=== PATIENT | female | born 1985 | race American Indian/Alaskan Native ===

== ENCOUNTER 2022-08-02 14:11 | Inpatient (IN) | payer MEDICARE, MEDICAID ==
[2022-08-02 14:45] VITALS: BP 143/95
[2022-08-02 15:51] LABS: Hematocrit 29.2 % (30.3-42.9); Hemoglobin 9.8 gm/dl (10.1-14.3); Mean Corpuscular HGB Conc 34 % (30-34); Platelet Count 119 K/mm3 (140-440); Red Blood Count 2.64 M/mm3 (3.65-5.03)
[2022-08-02 15:55] LABS: Albumin 4.2 g/dL (3.9-5); Calcium 7.6 mg/dL (8.4-10.2)
[2022-08-02 16:00] LABS: Mean Corpuscular Volume 111 fl (79-97); Red Cell Distribution Width 21.6 % (13.2-15.2)
--- NOTE | 2022-08-02 16:46 | XRay Report ---
CHEST 2 VIEWS INDICATION / CLINICAL INFORMATION: Missed hemodialysis. COMPARISON: None available. FINDINGS: SUPPORT DEVICES: None. HEART / MEDIASTINUM: The heart size and pulmonary vasculature are normal. LUNGS / PLEURA: No significant pulmonary or pleural abnormality. No pneumothorax. ADDITIONAL FINDINGS: No significant additional findings. IMPRESSION: No acute findings. Signer Name: Miky Gong MD Signed: 08/02/2022 4:42 PM Workstation Name: [id number]
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
--- NOTE | 2022-08-02 17:48 | History and Physical Report ---
History of Present Illness Chief complaint: I need dialysis History of present illness: 37 YO Female with ESRD on HD(T,R,Sa) last dialyzed on Sunday, HTN, HLD presents to ED for evaluation. Patient reports "I need dialysis". Patient states that she missed her routine dialysis session on Sunday. Patient transported to [facility] via private vehicle for further care and evaluation of the aforementioned symptoms. Patient seen and evaluated emergency department all lab and imaging studies reviewed. Patient found to have end-stage renal disease in need of urgent dialysis with concomitant fluid overload. Nephrology team consulted in ED. Patient denies fever, chills, chest pain, palpitation, productive cough, skin rash, recent contact, known exposure to COVID-19. No prior admission for review. All medication listed at time of admission has been reconciled. Advanced care planning conducted in ED. Past History Past Medical History: ESRD, hypertension Past Surgical History: Other (Dialysis access) Social history: single. denies: smoking, alcohol abuse, prescription drug abuse Family history: diabetes, hypertension Medications and Allergies Allergies Allergy/AdvReac Type Severity Reaction Status Date / Time ampicillin Allergy Unknown Verified 08/02/22 14:50 doxercalciferol Allergy Unknown Verified 08/02/22 14:50 [From Hectorol] fentanyl Allergy Unknown Verified 08/02/22 14:50 latex Allergy Unknown Verified 08/02/22 14:50 promethazine [From Phenergan] Allergy Unknown Verified 08/02/22 14:50 vancomycin Allergy Unknown Verified 08/02/22 14:50 Review of Systems Constitutional: no weight loss, no weight gain, no fever, no chills Ears, nose, mouth and throat: no ear pain, no tinnitis, no decreased hearing Breasts: no change in shape, no swelling, no mass Cardiovascular: no chest pain, no orthopnea, no rapid/irregular heart beat, no edema, no syncope Respiratory: no cough, no excessive sputum, no hemoptysis, no shortness of breath Gastrointestinal: no abdominal pain, no nausea, no diarrhea, no hematemesis Genitourinary Female: no pelvic pain, no flank pain, no dysuria, no urinary frequency, no urgency, no stress incontinence Rectal: no pain, no incontinence, no bleeding Musculoskeletal: no neck stiffness, no shooting arm pain, no low back pain, no shooting leg pain, no leg numbness/tingling Integumentary: no rash, no redness, no sores, no jaundice, no boils, no blisters Neurological: no head injury, no paralysis, no parathesias, no seizures, no tremors, no ataxia Psychiatric: no anxiety, no sleep disturbances, no hypersomnia, no change in libido, no suicidal ideation, no hallucinations Endocrine: no heat intolerance, no polydipsia, no weight change Hematologic/Lymphatic: no easy bruising, no easy bleeding, no lymphedema Allergic/Immunologic: no urticaria, no allergic rhinitis, no wheezing, no anaphylaxis Exam - Constitutional Vitals: Temp Pulse Resp BP Pulse Ox 99 F 89 18 143/95 98 08/02/22 14:40 08/02/22 14:40 08/02/22 17:01 08/02/22 14:40 08/02/22 17:01 General appearance: Present: mild distress - EENT Eyes: Present: PERRL ENT: hearing intact, clear oral mucosa - Neck Neck: Present: supple, normal ROM - Respiratory Respiratory effort: normal Respiratory: bilateral: CTA - Cardiovascular Heart Sounds: Present: S1 & S2. Absent: rub, click - Extremities Extremities: pulses symmetrical, No edema Peripheral Pulses: within normal limits - Abdominal General gastrointestinal: Present: soft, non-tender, non-distended, normal bowel sounds Female genitourinary: Present: normal - Integumentary Integumentary: Present: clear, warm, dry - Musculoskeletal Musculoskeletal: gait normal, strength equal bilaterally - Psychiatric Psychiatric: appropriate mood/affect, intact judgment & insight - Neurologic Neurologic: CNII-XII intact, moves all extremities Results - Labs CBC & Chem 7: 08/02/22 15:07 08/02/22 15:07 Labs: Abnormal lab results 08/02/22 08/02/22 08/02/22 Range/Units 15:07 15:07 15:07 WBC 4.3 L (4.5-11.0) K/mm3 RBC 2.64 L (3.65-5.03) M/mm3 Hgb 9.8 L (10.1-14.3) gm/dl Hct 29.2 L (30.3-42.9) % MCV 111 H (79-97) fl MCH 37 H (28-32) pg RDW 21.6 H (13.2-15.2) % Plt Count 119 L (140-440) K/mm3 Chloride 95.7 L (98-107) mmol/L Carbon Dioxide 21 L (22-30) mmol/L BUN 98 H (7-17) mg/dL Creatinine 19.7 H (0.6-1.2) mg/dL Glucose 113 H (65-100) mg/dL Calcium 7.6 L (8.4-10.2) mg/dL Phosphorus 7.80 H (2.5-4.5) mg/dL NT-Pro-B Natriuret Pep 7790 H (0-450) pg/mL Assessment and Plan - Patient Problems (1) ESRD (end stage renal disease) Current Visit: Yes Status: Acute Plan to address problem: Nephrology team consulted in ED, dialysis as per renal team, strict I/O, monitor fluid balance, avoid nephrotoxic agents. (2) Fluid overload Current Visit: Yes Status: Acute Qualifiers: Hypervolemia type: unspecified Qualified Code(s): E87.70 - Fluid overload, unspecified Plan to address problem: Urgent dialysis as per renal team, supportive care, monitor fluid balance. (3) Metabolic acidosis Current Visit: Yes Status: Acute Plan to address problem: Urgent dialysis, supportive care. BMP, repeat BMP in AM. (4) DVT prophylaxis Current Visit: Yes Status: Acute Plan to address problem: SCD to bilateral lower extremities on bed (5) Advance care planning Current Visit: Yes Status: Acute Plan to address problem: Disease education data, care plan discussed, diagnoses discussed, prognosis di scussed, patient is full code. Patient knowledges understanding and agreed with care plan, +30 minutes. (6) Preventative health care Current Visit: Yes Status: Acute Plan to address problem: Patient counseled regarding compliance with dialysis, risk factor reduction, renal diet. +30 minutes.
[2022-08-02] MEDS ORDERED: ACETAMINOPHEN 325 MG TAB PO PRN (17:51)
[2022-08-02] MEDS ORDERED: ALBUTEROL 2.5 MG/3 ML NEBU IH PRN (17:51)
[2022-08-02] MEDS ORDERED: ONDANSETRON 4 MG/2 ML INJ IV PRN (17:51)
[2022-08-02] MEDS ORDERED: HYDROmorphone 0.5 MG/0.5 ML INJ IV PRN (17:51)
[2022-08-02] MEDS ORDERED: oxyCODONE /ACETAMINOPHEN 5-325MG TAB PO PRN (17:51)
[2022-08-02] MEDS ORDERED: SODIUM CHLORIDE 0.9% 100 ML IV PRN (23:25)
[2022-08-02] MEDS ORDERED: EPOETIN ALFA-EPBX 20,000 UNIT/1 ML VIAL IV PRN (23:25)
[2022-08-02] MEDS ORDERED: HEPARIN 10,000 UNITS/10 ML VIAL IV PRN (23:25)
== END 2022-08-02 19:40 | disposition left against medical advice (07) | DRG 640 ==
LOC: ED 14:11 → 3A 17:51 → UNDODISIN 22:10
PROVIDERS: ADMIT Internal Medicine; ATTEND Internal Medicine
DX: E87.70 Fluid overload, unspecified (principal); N18.6 End stage renal disease; I12.0 Hypertensive chronic kidney disease with stage 5 chronic kidney disease or end stage renal disease; E87.2 Acidosis; E78.5 Hyperlipidemia, unspecified; Z53.29 Procedure and treatment not carried out because of patient's decision for other reasons; Z83.3 Family history of diabetes mellitus; Z82.49 Family history of ischemic heart disease and other diseases of the circulatory system; Z88.8 Allergy status to other drugs, medicaments and biological substances; Z91.040 Latex allergy status; Z99.2 Dependence on renal dialysis
CPT/HCPCS: 36415; 71046; 80053; 83880; 84100; 85027; 99285; G0378